=== PATIENT | female | born 1965 | race American Indian/Alaskan Native ===

== ENCOUNTER 2017-05-29 06:50 | Day surgery (SDC) | payer OTHER ==
[2017-05-29 07:13] VITALS: BMI 25.9
--- NOTE | 2017-05-29 08:25 | CP.SDSHP ---
Same Day Surgery H & P - History Proposed Procedure: COLONSCOPY Pre-Op Diagnosis: SEE NOTES - Allergies Allergies: Allergies NUTS Allergy (Uncoded 07/20/15 08:09) ITCHING - Physical Exam Vital Signs: Vital Signs 05/29/17 07:21 Temperature 97.7 F Pulse Rate 80 Respiratory 17 Rate Blood Pressure 115/81 O2 Sat by Pulse 99 Oximetry Mental Status: Alert & Oriented x3 Heart: Other Lungs: WNL GI: Other - {Optional Preform as Required} Breast: WNL Abdomen: Other Rectal: Other Integument: WNL : WNL Ortho: Other ENT: WNL - Impression Pt. Evaluated Today:Candidate for Anesthesia & Procedure: Yes - Date & Time Time: 08:26 Short Stay Discharge - Short Stay Discharge Admitting Diagnosis/Reason for Visit: POLYP OF COLON Disposition: HOME/ ROUTINE
[2017-05-29] MEDS ORDERED: Belladonna-Phenobarbital PO STA (08:27)
[2017-05-29] MEDS ORDERED: Lactated Ringer's 500 ML IV ONE ×2 (08:28)
[2017-05-29] MEDS ORDERED: Lactated Ringer's 500 ML IV SCH (08:30)
[2017-05-29] MEDS ORDERED: Propofol 10 mg/ml Inj (20 ML) ONE (08:30)
[2017-05-29 09:12] VITALS: TEMP 97.2
[2017-05-29 09:15] VITALS: BP 110/75; PULSE 69; RESP 16; O2SAT 99
== END 2017-05-29 09:47 | disposition home or self-care (01) ==
LOC: C.ENDO 06:50
PROVIDERS: ATTEND Specialist
DX: K52.9 Noninfective gastroenteritis and colitis, unspecified (principal); K64.8 Other hemorrhoids; K57.90 Diverticulosis of intestine, part unspecified, without perforation or abscess without bleeding
CPT/HCPCS: 45380; 88305; J2704; J3010; J7120

== ENCOUNTER 2017-06-03 06:58 | Day surgery (SDC) | payer OTHER ==
[2017-06-03] MEDS ORDERED: Propofol 10 mg/ml Inj (20 ML) ONE (08:31)
--- NOTE | 2017-06-03 08:35 | CP.SDSHP ---
Same Day Surgery H & P - History Proposed Procedure: EGD Pre-Op Diagnosis: SEE NOTES - Previous Medical/Surgical History Cardiac: Hypertension Neuro: Backaches Misc: Other Pain: 4.Moderate Pain - Allergies Allergies: Allergies NUTS Allergy (Intermediate, Uncoded 06/03/17 07:25) ITCHING - Physical Exam General Appearance: N Vital Signs: Vital Signs 06/03/17 07:42 Temperature 97 F L Pulse Rate 77 Respiratory 19 Rate Blood Pressure 115/78 O2 Sat by Pulse 100 Oximetry Mental Status: Alert & Oriented x3 Neuro: WNL Heart: Other Lungs: WNL GI: Other - {Optional Preform as Required} Breast: WNL Abdomen: Other Rectal: Other Integument: WNL : WNL Ortho: Other ENT: WNL - Impression Pt. Evaluated Today:Candidate for Anesthesia & Procedure: Yes - Date & Time Time: 08:36 Short Stay Discharge - Short Stay Discharge Admitting Diagnosis/Reason for Visit: DYSPEPSIA Disposition: HOME/ ROUTINE
[2017-06-03 09:01] VITALS: TEMP 97.5
[2017-06-03] MEDS ORDERED: Belladonna-Phenobarbital PO ONE (09:05)
[2017-06-03] MEDS ORDERED: Sucralfate 1 gm/10 ml Oral Susp UD PO ONE (09:10)
[2017-06-03] MEDS ORDERED: Pantoprazole 40 mg EC Tab PO ONE (09:10)
[2017-06-03 09:45] VITALS: O2SAT 100
[2017-06-03 10:39] VITALS: BP 131/77; PULSE 68; RESP 12
== END 2017-06-03 10:15 | disposition home or self-care (01) ==
LOC: C.ENDO 06:58
PROVIDERS: ATTEND Specialist
DX: K25.9 Gastric ulcer, unspecified as acute or chronic, without hemorrhage or perforation (principal); K29.70 Gastritis, unspecified, without bleeding
CPT/HCPCS: 43239; 88305; 88342; J2704